=== PATIENT | female | born 1970 | race Two or more races ===

== ENCOUNTER 2020-03-31 06:55 | Inpatient (IN) | payer MEDICAID ==
[2020-03-27 10:38] LABS: Basophils # (auto) 0.1 10 ^3/uL (0-0.2); Basophils % (auto) 0.8 % (0.0-2.0); Eosinophils # (auto) 0.3 10 ^3/uL (0-0.8); Eosinophils % (auto) 2.5 % (0.0-7.0); Hematocrit 44.1 % (36.0-46.0); Hemoglobin 14.8 g/dL (12.2-16.2); Lymphocytes # (auto) 2.7 10 ^3/uL (0.4-5.4); Lymphocytes % (auto) 26.5 % (10.0-50.0); Mean Corpuscular Hemoglobin 31.2 pg (28.0-32.0); Mean Corpuscular Hgb Conc. 33.5 g/dL (32.0-36.0); Mean Corpuscular Volume 93.2 fL (80.0-100.0); Monocytes # (auto) 0.3 10 ^3/uL (0-1.3); Neutrophils # (auto) 6.9 10 ^3/uL (1.6-8.6); Neutrophils % (auto) 67.2 % (37.0-80.0); Nucleated Red Blood Cells % 0.1 %; Platelet Count (auto) 310 10^3/uL (140-450); Red Blood Cells 4.73 10^6/uL (4.0-5.20); Red Cell Distribution Width 14.3 % (11.8-14.3); White Blood Cell 10.2 10^3/uL (4.4-10.8)
[2020-03-27 10:47] LABS: INR 1.03 (0.9-1.15); Partial Thromboplastin Time 26.5 sec (23.0-31.2)
[2020-03-27 11:34] LABS: Potassium 3.9 mmol/L (3.5-5.1)
[2020-03-27 11:47] LABS: Albumin 3.9 g/dL (3.4-5.0); BUN/Creatinine Ratio 12.2; Bilirubin, Total 0.5 mg/dL (0.2-1.0); Calcium 9.4 mg/dL (8.5-10.1); Total Protein 8.4 g/dL (6.4-8.2)
[2020-03-29 11:10] LABS: Urine Bacteria FEW /hpf (None Seen); Urine Blood Negative /uL (Negative); Urine Mucus FEW (None Seen); Urine Specific Gravity 1.028 (1.001-1.035); Urine WBC 47 /hpf (0 - 5)
[~2020-03-31] VITALS: Ht 167.6 cm; Wt 117.4 kg
[~2020-03-31 06:55] MED LIST: AMIT100T75 PO; ATOR20TA50 PO; BACL10TA PO; ERGO1CAP12 PO; FERR-20 PO; GABA-339 PO; HYDR-531 PO; IBUP600T27 PO; METF-370 PO; OXYB5SYP4 PO
[2020-03-31] MEDS ORDERED: ceFAZolin 1GM/50ML 100 ML IV ONE (07:36)
[2020-03-31] MEDS ORDERED: SUCCINYLCHOLINE CHLORIDE 20 MG/ML 10ML VIAL IV ONE (08:35)
[2020-03-31] MEDS ORDERED: PHENYLEPHRINE HCL 10 MG/ML VL IV ONE (08:35)
[2020-03-31] MEDS ORDERED: MEPERIDINE HCL (50 MG/ML) 1 ML VIAL IV ONE (08:35)
[2020-03-31] MEDS ORDERED: fentaNYL CITRATE 100 MCG/2 ML VL ONE (08:35)
[2020-03-31] MEDS ORDERED: MEPERIDINE HCL (50 MG/ML) 1 ML VIAL ONE (08:35)
[2020-03-31] MEDS ORDERED: MIDAZOLAM HCL 1MG/1ML-2 ML VIAL ONE (08:35)
[2020-03-31] MEDS ORDERED: PROPOFOL 10 MG/ML 20 ML IV ONE (08:36)
[2020-03-31] MEDS ORDERED: DexAMETHasone SOD PHOS 10MG/1ML VIAL INJ ONE (08:36)
[2020-03-31] MEDS ORDERED: KETOROLAC TROMETH 30 MG/ML 1ML VIAL IV ONE (09:30)
[2020-03-31] MEDS ORDERED: ACCU-CHEK COMFORT CURVE STRIP VI ONE (09:30)
[2020-03-31] MEDS ORDERED: MORPHINE SULFATE 4 MG/ML SYR/VIAL IV PRN (09:30)
[2020-03-31] MEDS ORDERED: HYDROmorphone HCL 2 MG/ML VL IV PRN (09:30)
[2020-03-31] MEDS ORDERED: ONDANSETRON HCL 4 MG/2 ML VIAL IV PRN (09:30)
[2020-03-31] MEDS ORDERED: ePHEDrine SULFATE 50 MG/ML AMP IV PRN (09:30)
[2020-03-31] MEDS ORDERED: LABETALOL HCL 5 MG/ML 4ML SYRINGE IV PRN (09:30)
[2020-03-31] MEDS ORDERED: ONDANSETRON HCL 4 MG/2 ML VIAL ONE (10:17)
[2020-03-31] MEDS ORDERED: CONJ ESTROGENS 0.625MG/GM VAG CRM 30GM PV ONE ×2 (11:08→11:11)
[2020-03-31] MEDS ORDERED: ACETAMINOPHEN IV 100 ML IV ONE ×2 (11:45→12:12)
[2020-03-31] MEDS ORDERED: ceFAZolin 1GM/50ML 50 ML IV ONE (11:45)
[2020-03-31] MEDS: KETOROLAC TROMETH 30 MG/ML 1ML VIAL IV SCH ×3 (12:00→23:54)
[2020-03-31 12:55] VITALS: BP 146/78
--- NOTE | 2020-03-31 12:55 | NUR ---
[facility] admit from [facility] admitted to [facility] after report received. Patient oriented to ERWIN GLEZ RN primary RN, unit, room, bed, and unit policies regarding patient care and visiting hours. Patient weighed by bedscale and encouraged to call if they need something. All questions and concerns addressed, patient verbalized understanding. Patient has pads to kip area. No blood noted to pads.
[2020-03-31] MEDS: LACTATED RINGER'S 1,000 ML IV SCH ×2 (13:00→18:25)
--- NOTE | 2020-03-31 14:08 | NUR ---
RT NOTE: PT WAS PLACED ON HOSPITALS OWN CONTINUOUS BEDSIDE PULSE OX, PT IS ON 3L NC, HR 86, SPO2 97%, RR 16, WILL CONTINUE TO MONITOR PT.
[2020-03-31] MEDS ORDERED: DEXTROSE (50%) 50ML SYRG IV PRN (14:15)
[2020-03-31] MEDS: HYDROmorphone HCL 2 MG/ML VL IV PRN ×3 (15:26→22:40)
[2020-03-31] MEDS: ACCU-CHEK COMFORT CURVE STRIP VI SCH ×3 (15:33→23:54)
[2020-03-31 15:53] LABS: Albumin 3.6 g/dL (3.4-5.0); Calcium 8.7 mg/dL (8.5-10.1)
[2020-03-31] MEDS: InsuLIN REG 1unit/0.01ml Soln (100units/ml) SC SCH ×3 (15:55→23:54)
[2020-03-31 15:56] LABS: BUN/Creatinine Ratio 17.1; Bilirubin, Total 0.4 mg/dL (0.2-1.0); Total Protein 7.7 g/dL (6.4-8.2)
[2020-03-31 16:56] VITALS: BP 141/85
--- NOTE | 2020-03-31 18:41 | NUR ---
Respiratory note: PT RECIEVED ON NC3L. PT AWAKE AND RESPONSIVE. PT CONNECTED TO BEDSIDE PULSE OXIMETER. SPO2 96%, HR 89, RR 18. RN AT BEDSIDE WITH PT. WILL CONTINUE TO MONITOR PT T/O SHIFT.
--- NOTE | 2020-03-31 19:01 | NUR ---
Closing Shift Note Patient resting in bed. No distress noted. Patient medicated for pain. Report given. Will endorse care to the manager night RN.
--- NOTE | 2020-03-31 19:40 | NUR ---
Opening Shift Note Assumed care of patient, awake and alert. No S/S of distress/SOB or pain. Instructed on POC and to call for assist PRN. Bed in lowest locked position, call light within reach, side rails up x2. Will continue to monitor for changes Q1hr and PRN.
[2020-03-31 22:18] VITALS: BP 107/82
[2020-04-01] MEDS: ONDANSETRON HCL 4 MG/2 ML VIAL IV PRN ×2 (01:07→06:35)
[2020-04-01] MEDS: LACTATED RINGER'S 1,000 ML IV SCH ×3 (01:43→11:38)
[2020-04-01] MEDS: InsuLIN REG 1unit/0.01ml Soln (100units/ml) SC SCH ×4 (04:00→16:00)
[2020-04-01] MEDS: HYDROmorphone HCL 2 MG/ML VL IV PRN (04:06)
[2020-04-01] MEDS: ACCU-CHEK COMFORT CURVE STRIP VI SCH ×4 (04:06→16:13)
[2020-04-01 05:06] VITALS: BP 98/63
[2020-04-01] MEDS: KETOROLAC TROMETH 30 MG/ML 1ML VIAL IV SCH (06:35)
[2020-04-01 07:00] LABS: Basophils # (auto) 0 10 ^3/uL (0-0.2); Eosinophils # (auto) 0 10 ^3/uL (0-0.8); Hemoglobin 11.1 g/dL (12.2-16.2); Lymphocytes # (auto) 1.5 10 ^3/uL (0.4-5.4); Lymphocytes % (auto) 8.6 % (10.0-50.0); Mean Corpuscular Hemoglobin 31.5 pg (28.0-32.0); Mean Corpuscular Hgb Conc. 33.7 g/dL (32.0-36.0); Mean Corpuscular Volume 93.4 fL (80.0-100.0); Monocytes # (auto) 0.5 10 ^3/uL (0-1.3); Monocytes % (auto) 3.2 % (0.0-12.0); Neutrophils # (auto) 14.9 10 ^3/uL (1.6-8.6); Neutrophils % (auto) 88.2 % (37.0-80.0); Platelet Count (auto) 255 10^3/uL (140-450); Red Blood Cells 3.53 10^6/uL (4.0-5.20); Red Cell Distribution Width 13.9 % (11.8-14.3); White Blood Cell 16.9 10^3/uL (4.4-10.8)
[2020-04-01] MEDS ORDERED: IBUPROFEN 800 MG TAB PO PRN (08:00)
[2020-04-01] MEDS ORDERED: HYDROcodone-ACET 5/325MG TAB PO PRN ×2 (08:00)
--- NOTE | 2020-04-01 08:00 | NUR ---
Dr Hadley at bedside discussed plan of care, possibly discharge this evening, patient verbalized understanding. Packing removed without incidence, hoover discontinued.
[2020-04-01 09:00] VITALS: BP 92/52
[2020-04-01] MEDS ORDERED: metFORMIN HYDROCHLORIDE 500 MG TAB PO SCH (10:00)
[2020-04-01] MEDS ORDERED: DOCUSATE SOD 100 MG CAP PO SCH (10:00)
[2020-04-01 13:00] VITALS: BP 93/55
[2020-04-01 16:57] VITALS: BP 122/83
--- NOTE | 2020-04-01 17:25 | NUR ---
Paged Dr Hadley, patient requesting to go home today and wanted to know if Dr will see her. I assured her dr would be by but patient insisted to call him.
--- NOTE | 2020-04-01 17:35 | NUR ---
Dr Hadley called back, he will see patient tonight.
[2020-04-01 18:22] VITALS: BP 102/71
--- NOTE | 2020-04-01 18:43 | NUR ---
patient given discharge instructions, patient verbalized understanding, patient IV discontinued without incidence. Patient waiting on ride.
== END 2020-04-01 18:50 | disposition home or self-care (01) | DRG 519 ==
LOC: OVERFLOW 06:55 → EDSTATUS 09:45 → WEST WING 12:55
PROVIDERS: ADMIT Specialist; ATTEND Specialist
PROC: 0USG7ZZ Reposition Vagina, Via Natural or Artificial Opening (ICD-10-PCS; 2020-03-31)
PROC: 0UT97ZZ Resection of Uterus, Via Natural or Artificial Opening (ICD-10-PCS; principal; 2020-03-31 08:40)
DX: D25.9 Leiomyoma of uterus, unspecified (principal); N92.0 Excessive and frequent menstruation with regular cycle; N94.6 Dysmenorrhea, unspecified; E11.9 Type 2 diabetes mellitus without complications; Z20.828 Contact with and (suspected) exposure to other viral communicable diseases; Z82.49 Family history of ischemic heart disease and other diseases of the circulatory system; Z79.899 Other long term (current) drug therapy; R71.0 Precipitous drop in hematocrit
CPT/HCPCS: 36415; 80053; 81001; 82962; 84702; 85025; 85610; 85730; 86850; 86900; 86901; 94762; G0378; J0131; J0330; J0690; J1100; J1815; J1885; J2250; J2405; J2704